=== PATIENT | female | born 1980 | race Caucasian/White ===

== ENCOUNTER 2017-11-04 11:02 | Emergency (ER) | payer BC ==
[~2017-11-04] VITALS: Ht 182.9 cm; Wt 69.4 kg
[~2017-11-04 11:02] MED LIST: AMITRIPTYLINE H10 M1 PO; HYDROCODON-ACE1 EAC7 PO; HYDROXYZINE HCL25 M1 PO; IBUPROFEN 800800 MG PO; METOPROLOL SUCC25 M1 PO; SYNTHROID150 MCG PO; ZOFRAN ODT4 MG PO
[2017-11-04] MEDS ORDERED: XANAX 0.5 MG0.5 MG PO (11:13)
[2017-11-04] MEDS ORDERED: LOPRESSOR50 PO (11:13)
[2017-11-04 11:24] LABS: ABSOLUTE EOSINOPHILS 0.1 thou/uL (0.0-0.7); ABSOLUTE LYMPHOCYTES 2.4 thou/uL (0.8-5.3); ABSOLUTE MONOCYTES 0.4 thou/uL (0.0-1.2); ABSOLUTE NEUTROPHILS 2.5 thou/uL (1.6-8.1); BASOPHILS 0.8 %; EOSINOPHILS 2.6 %; HEMATOCRIT 42.9 % (37.0-47.0); HEMOGLOBIN 14.8 gm/dL (12.0-15.0); LYMPHOCYTES 43.9 %; MCH 34.1 pg (26.0-34.0); MCHC 34.5 g/dL (28.0-37.0); MCV 98.9 fL (80.0-100.0); MONOCYTES 7.1 %; MPV 8.3 fl. (7.2-11.1); NUCLEATED RBCS 0 /100WBC; PLATELET COUNT* 236 thou/uL (150-400); POLYS 45.6 %; RBC 4.34 mil/uL (4.20-5.00); RDW-CV 12.6 % (10.5-14.5); WBC 5.4 thou/uL (4.0-11.0)
[2017-11-04 11:39] LABS: INR 1.1; PROTIME 10.7 Seconds (9.20-11.50)
[2017-11-04 11:45] LABS: ANION GAP 14 mmol/L (7-16); BUN 11 mg/dL (7-18); CALCIUM 9.2 mg/dL (8.5-10.1); CHLORIDE 104 mmol/L (98-107); CO2 25 mmol/L (21-32); CREATININE 0.7 mg/dL (0.6-1.3); GLUCOSE 101 mg/dL (70-99); POTASSIUM 3.2 mmol/L (3.5-5.1); SODIUM 143 mmol/L (136-145)
[2017-11-04 12:00] LABS: ALBUMIN 4.1 g/dL (3.4-5.0); ALKALINE PHOSPHATASE 55 U/L (46-116); LIPASE 95 U/L (73-393); NT-PRO BRAIN NAT PEPTIDE 47 pg/mL (<300); SGOT 11 U/L (15-37); SGPT 13 U/L (30-65); TOTAL BILIRUBIN 0.6 mg/dL (<0.1-1.0); TOTAL PROTEIN 7.5 g/dL (6.4-8.2); TROPONIN-I LEVEL <0.06 ng/mL (<0.06)
[2017-11-04 12:07] LABS: URINE BILIRUBIN NEGATIVE (Negative); URINE BLOOD 3+ (Negative); URINE CLARITY CLEAR; URINE COLOR YELLOW; URINE GLUCOSE-RANDOM NEGATIVE (Negative); URINE KETONES 2+ (Negative); URINE LEUKOCYTES-REFLEX NEGATIVE (Negative); URINE NITRITE-REFLEX NEGATIVE (Negative); URINE PROTEIN 1+ (Negative); URINE SPECIFIC GRAVITY 1.015 (1.005-1.030); URINE UROBILINOGEN 0.2 E.U./dl (0.2-1.0)
[2017-11-04 12:17] LABS: BACTERIA-REFLEX 1-9 Few /HPF (None Seen); CASTS None Seen /LPF (None Seen); CRYSTALS None Seen /LPF (None Seen); MUCUS 0-3 Light strn/LPF (None Seen); SQUAMOUS 4-10 Moderate /LPF (0-3); URINE WBC-REFLEX 0-5 Rare /HPF (0-5)
[2017-11-04 12:30] LABS: AMP/METHAMP Negative (Negative); BARBITURATES Negative (Negative); BENZODIAZEPINES POSITIVE (Negative); COCAINE Negative (Negative); METHADONE Negative (Negative); OPIATES Negative (Negative); PCP Negative (Negative); THC POSITIVE (Negative)
[2017-11-04] MEDS ORDERED: TIROSINT100 MCG PO (13:06)
[2017-11-04 14:06] VITALS: BP 122/93
--- NOTE | 2017-11-04 16:41 | EKG ---
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
--- NOTE | 2017-11-04 16:42 | EKG ---
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
[2017-11-05 05:08] LABS: T3 UPTAKE 37 % (24-39)
== END 2017-11-04 14:06 | disposition home or self-care (01) ==
LOC: M.ERS 11:02
PROVIDERS: Emergency Medicine
DX: R00.2 Palpitations (principal); F41.9 Anxiety disorder, unspecified

== ENCOUNTER 2017-11-13 13:05 | Emergency (ER) | payer BC ==
[~2017-11-13] VITALS: Ht 182.9 cm; Wt 69.8 kg
[~2017-11-13 13:05] MED LIST changes: +LOPRESSOR50 PO; +TIROSINT100 MCG PO; +XANAX 0.5 MG0.5 MG PO
[2017-11-13 13:37] LABS: ABSOLUTE BASOPHILS 0.1 thou/uL (0.0-0.2); ABSOLUTE EOSINOPHILS 0.2 thou/uL (0.0-0.7); ABSOLUTE LYMPHOCYTES 2.3 thou/uL (0.8-5.3); ABSOLUTE MONOCYTES 0.6 thou/uL (0.0-1.2); ABSOLUTE NEUTROPHILS 4.3 thou/uL (1.6-8.1); BASOPHILS 0.9 %; EOSINOPHILS 2.3 %; HEMATOCRIT 44.3 % (37.0-47.0); HEMOGLOBIN 15.1 gm/dL (12.0-15.0); LYMPHOCYTES 30.7 %; MCH 33.9 pg (26.0-34.0); MCHC 34.1 g/dL (28.0-37.0); MCV 99.4 fL (80.0-100.0); MONOCYTES 7.7 %; MPV 8.5 fl. (7.2-11.1); NUCLEATED RBCS 0 /100WBC; PLATELET COUNT* 218 thou/uL (150-400); POLYS 58.4 %; RBC 4.46 mil/uL (4.20-5.00); RDW-CV 12.6 % (10.5-14.5); WBC 7.4 thou/uL (4.0-11.0)
[2017-11-13 13:45] LABS: ANION GAP 11 mmol/L (7-16); BUN 12 mg/dL (7-18); CALCIUM 9.2 mg/dL (8.5-10.1); CHLORIDE 103 mmol/L (98-107); CO2 26 mmol/L (21-32); CREATININE 0.8 mg/dL (0.6-1.3); GLUCOSE 87 mg/dL (70-99); POTASSIUM 3.6 mmol/L (3.5-5.1); SODIUM 140 mmol/L (136-145)
[2017-11-13 13:52] LABS: ALBUMIN 3.9 g/dL (3.4-5.0); ALKALINE PHOSPHATASE 51 U/L (46-116); SGOT 10 U/L (15-37); SGPT 12 U/L (30-65); TOTAL BILIRUBIN 0.4 mg/dL (<0.1-1.0); TOTAL PROTEIN 7.1 g/dL (6.4-8.2); TROPONIN-I LEVEL <0.06 ng/mL (<0.06)
[2017-11-13 14:00] LABS: URINE BILIRUBIN NEGATIVE (Negative); URINE BLOOD 3+ (Negative); URINE CLARITY CLEAR; URINE COLOR YELLOW; URINE GLUCOSE-RANDOM NEGATIVE (Negative); URINE KETONES NEGATIVE (Negative); URINE LEUKOCYTES-REFLEX NEGATIVE (Negative); URINE NITRITE-REFLEX NEGATIVE (Negative); URINE PROTEIN NEGATIVE (Negative); URINE SPECIFIC GRAVITY 1.015 (1.005-1.030); URINE UROBILINOGEN 0.2 E.U./dl (0.2-1.0)
[2017-11-13 14:07] LABS: AMP/METHAMP Negative (Negative); BARBITURATES Negative (Negative); BENZODIAZEPINES POSITIVE (Negative); COCAINE Negative (Negative); METHADONE Negative (Negative); OPIATES Negative (Negative); PCP Negative (Negative); THC POSITIVE (Negative)
[2017-11-13 14:12] LABS: BACTERIA-REFLEX None Seen /HPF (None Seen); CASTS None Seen /LPF (None Seen); CRYSTALS None Seen /LPF (None Seen); SQUAMOUS 0-3 Few /LPF (0-3); URINE RBC >20 Many /HPF (0-2); URINE WBC-REFLEX 0-5 Rare /HPF (0-5)
[2017-11-13 15:36] VITALS: BP 118/90
--- NOTE | 2017-11-13 15:56 | EKG ---
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
== END 2017-11-13 15:36 | disposition home or self-care (01) ==
LOC: M.ERS 13:05
PROVIDERS: Nurse Practitioner Family
DX: R00.2 Palpitations (principal); E05.00 Thyrotoxicosis with diffuse goiter without thyrotoxic crisis or storm; F41.9 Anxiety disorder, unspecified

== ENCOUNTER → 2017-12-08 | Outpatient (CLI) | payer BC ==
--- NOTE | 2017-12-08 11:13 | 2DMMODE ---
[place] [address] 2 D/M-MODE ECHOCARDIOGRAM Name: ROXIE DANGELO Room: [facility]#: [id number] Admission: 12/08/17 Attend Phys: Kali Long, Discharge: Date of : 82 Date of Service: 12/08/17 1113 Report #: [id number] THIS REPORT FOR: //name// APPROVED REPORT Study performed: 12/08/2017 10:00:33 EXAM: Comprehensive 2D, Doppler, and color-flow Echocardiogram Patient Location: Out-Patient BSA: 1.90 HR: 64 bpm BP: 108/80 mmHg Other Information Study Quality: Fair Indications Palpitations 2D Dimensions LVEF(%): 32.71 (>50%) IVSd: 10.14 (7-11mm) LVOT Diam: 23.15 (18-24mm) LVDd: 35.36 mm PWd: 8.80 (7-11mm) Ascending Ao: 29.57 (22-36mm) LVDs: 30.03 (25-40mm) Aortic Root: 26.89 mm Edward's LVEF: 32.71 % Volumes Left Atrial Volume (Systole) LA ESV Index: 20.00 mL/m2 Aortic Valve AoV Peak Janes.: 0.99 m/s AO Peak Gr.: 3.93 mmHg LVOT Max P.67 mmHg AO Mean Gr.: 2.33 mmHg LVOT Mean P.78 mmHg LVOT Max V: 0.65 m/s AO V2 VTI: 20.30 cm LVOT Mean V: 0.40 m/s VLADIMIR (VTI): 2.31 cm2 LVOT V1 VTI: 11.16 cm Mitral Valve E/A Ratio: 1.73 MV Decel. Time: 219.47 ms MV E Max Janes.: 0.63 m/[place] [address] 2 D/M-MODE ECHOCARDIOGRAM Name: ROXIE DANGELO Room: [facility]#: [id number] Admission: 12/08/17 Attend Phys: Kali Long, Discharge: Date of : 82 Date of Service: 12/08/17 1113 Report #: [id number] MV PHT: 63.65 ms MVA (PHT): 3.46 cm2 TDI E/Lateral E': 4.50 E/Medial E': 4.20 Medial E' Janes.: 0.15 m/s Lateral E' Janes.: 0.14 m/s Pulmonary Valve PV Peak Janes.: 0.74 m/s PV Peak Gr.: 2.17 mmHg Left Ventricle The left ventricle is normal size. There is normal LV segmental wall motion. There is normal left ventricular wall thickness. Left ventricular systolic function is normal. The left ventricular ejection fraction is within the normal range. LVEF is 55-60%. The left ventricular diastolic function is normal. Right Ventricle The right ventricle is normal size. The right ventricular systolic function is normal. Atria The left atrium size is normal. The right atrium size is normal. Aortic Valve The aortic valve is normal in structure. No aortic regurgitation is present. There is no aortic valvular stenosis. Mitral Valve The mitral valve is normal in structure. Trace mitral regurgitation. No evidence of mitral valve stenosis. Tricuspid Valve The tricuspid valve is normal in structure. There is no tricuspid valve regurgitation noted. Pulmonic Valve The pulmonary valve is normal in structure. There is no pulmonic valvular regurgitation. Great Vessels The aortic root is normal in size. IVC is normal in size and collapses with >50% [place] [address] 2 D/M-MODE ECHOCARDIOGRAM Name: ROXIE DANGELO Room: [facility]#: [id number] Admission: 12/08/17 Attend Phys: Kali Long, Discharge: Date of : 82 Date of Service: 12/08/17 1113 Report #: [id number] Pericardium There is no pericardial effusion. <Conclusion> The left ventricle is normal size. There is normal left ventricular wall thickness. Left ventricular systolic function is normal. LVEF is 55-60%. The left ventricular diastolic function is normal. Trace mitral regurgitation. IVC is normal in size and collapses with >50% inspiration <ELECTRONICALLY SIGNED> By: Wm Pearson MD, FACC 12/08/17 1113 1113 1113 Wm Pearson MD, FACC /INF
== END ==
LOC: M.CRD 09:35
DX: R00.2 Palpitations (principal); R42 Dizziness and giddiness; R55 Syncope and collapse